=== PATIENT | female | born 1965 | race Caucasian/White ===

== ENCOUNTER 2024-03-15 14:11 | Emergency (ER) | payer OTHER ==
[~2024-03-15] VITALS: Ht 157.5 cm; Wt 72.6 kg
[2024-03-15 14:23] VITALS: BP_SYST 107; PULSE 72; RESP 16; O2SAT 97
[2024-03-15] MEDS: fentaNYL CITRATE/PF 100 MCG/2 ML AMP IVP ONE (15:07)
[2024-03-15] MEDS ORDERED: ASPIRIN 325 MG TABLET PO ONE (15:15)
[2024-03-15] MEDS ORDERED: HYDR-3917 PO (15:27)
[2024-03-15 16:29] VITALS: BP_SYST 107; PULSE 72; RESP 16; O2SAT 97
== END 2024-03-15 16:20 | disposition home or self-care (01) ==
LOC: SED 14:11
DX: S82.891A Other fracture of right lower leg, initial encounter for closed fracture (principal); W18.39XA Other fall on same level, initial encounter; Y93.89 Activity, other specified; Y92.89 Other specified places as the place of occurrence of the external cause; Y99.8 Other external cause status
CPT/HCPCS: 99284; 29515; 73590; 73600; 96372; J3010

== ENCOUNTER 2024-03-26 12:20 | Day surgery (SDC) | payer OTHER ==
[~2024-03-26] VITALS: Ht 157.5 cm; Wt 72.6 kg
[~2024-03-26 12:20] MED LIST: CEFAZOLIN SOD 2 GM in D5W 50 ML IV ONE; HYDR-3917 PO
[2024-03-26] MEDS ORDERED: fentaNYL CITRATE/PF 100 MCG/2 ML AMP ONE (13:34)
[2024-03-26] MEDS ORDERED: MIDAZOLAM HCL 2 MG/2 ML VIAL (VERSED) ONE (13:34)
[2024-03-26 14:00] VITALS: O2SAT 98
[2024-03-26] MEDS ORDERED: HYDROmorphone 2 MG/ML VIAL ONE (14:51)
[2024-03-26] MEDS ORDERED: KETAMINE HCL IN 0.9 % NACL 50 MG/5 ML SYRINGE ONE (14:51)
[2024-03-26] MEDS ORDERED: DEXAMETHASONE SOD PHOSPHATE 4 MG/ML VIAL ONE (16:15)
[2024-03-26] MEDS ORDERED: HYDROmorphone 1 MG/ML INJ. CARTRIDGE IVP PRN ×2 (16:30)
[2024-03-26] MEDS ORDERED: ONDANSETRON HCL 4 MG/2 ML VIAL IVP PRN (16:30)
[2024-03-26] MEDS ORDERED: NALOXONE HCL 0.4 MG/ML AMP (NARCAN) IVP PRN (16:30)
[2024-03-26] MEDS: hydrALAZINE HCL 20 MG/ML VIAL IV PRN (17:10)
[2024-03-26] MEDS ORDERED: hydrALAZINE HCL 20 MG/ML VIAL ONE (17:24)
[2024-03-26] MEDS ORDERED: HYDROmorphone 1 MG/ML INJ. CARTRIDGE ONE (17:53)
[2024-03-26] MEDS: HYDROmorphone 1 MG/ML INJ. CARTRIDGE IVP PRN (17:53)
[2024-03-26 19:34] VITALS: BP_SYST 138; PULSE 84; RESP 20
== END 2024-03-26 19:25 | disposition home or self-care (01) ==
LOC: SDS 12:20 → SMU 12:21 → SDS 19:25
PROVIDERS: ATTEND Student in an Organized Health Care Education/Training Program
DX: S82.841A Displaced bimalleolar fracture of right lower leg, initial encounter for closed fracture (principal); S93.431A Sprain of tibiofibular ligament of right ankle, initial encounter; K21.9 Gastro-esophageal reflux disease without esophagitis; I10 Essential (primary) hypertension; F41.9 Anxiety disorder, unspecified; F10.11 Alcohol abuse, in remission; Z90.710 Acquired absence of both cervix and uterus; Z85.3 Personal history of malignant neoplasm of breast; X58.XXXA Exposure to other specified factors, initial encounter; Y93.89 Activity, other specified; Y92.89 Other specified places as the place of occurrence of the external cause; Y99.8 Other external cause status
CPT/HCPCS: 87081; 27814; 27829; J0690; J1100; J0360; J3465; J2405; J2704; J3010; J1170 ×2; J7060; J7120; C1769; C1713 ×6; 76001